=== PATIENT | female | born 1950 | race Caucasian/White ===

== ENCOUNTER 2017-12-26 11:15 | Observation (INO) ==
--- NOTE | 2017-12-26 11:31 | Emergency Department Note ---
Disposition Clinical Impression: Atypical chest pain, Vomiting, Diarrhea, Thyroid nodule, Nausea, vomiting, and diarrhea, Dizziness Disposition: Admitted As Inpatient Condition: Serious Referrals: NONE,PCP [Primary Care Provider] - Zaina Zavala [Family Provider] - Time of Disposition: 14:56 General Adult HPI - General Stated complaint: general Time Seen by Provider: 12/26/17 11:26 Nursing Notes Reviewed: Yes Vital Signs Reviewed: Yes - History of Present Illness HPI Narrative: Patient presents today with CC of: vomitign blood chest pain Patient describes issue began around 2 days ago when she started having vomiting and diarrhea on Monday. She felt a little bit sick on Monday and has recently been exposed to her grandchild who had vomiting and diarrhea. She said she was doing okay but the vomiting has been very violent and when she started vomiting of blood she was concerned. She does not go to the doctor very often. She went to the [facility] urgent [facility] today and was sent here to the emergency department. She said the blood that she has been vomiting has been bright red and she did not vomit any of it today, but today she started having chest pain (pressure) central chest and shortness of breath ~ 10-11 am today. Now gone and pain free.. She also got lightheaded and dizzy. Patient is not on any blood thinners but she does take an aspirin every day and also takes Nexium. She does have a history of atrial fibrillation and several ablations in 2008 - no palpitations or hot/cold intolerance. She has not had any recent surgeries. She has had multiple surgeries on her arm because of carpal tunnel. She said yesterday she ate some toast and agonal today she also ate some toast. She does not have periods anymore she is . 1 miscarriage. She has not had any fever. She said the pain that she had today was in her mid chest became short of breath and was around 10:50 AM.*32 - Related Data Home Medications Medication Instructions Recorded Confirmed Aspirin 325 mg PO DAILY 03/09/17 Nexium 40 mg PO DAILY 03/09/17 Allergies Allergy/AdvReac Type Severity Reaction Status Date / Time codeine Allergy Rash Verified 03/09/17 16:10 hydrocodone Allergy Rash Verified 03/09/17 16:10 morphine Allergy Rash Verified 03/09/17 16:10 IVP Dye Allergy Swelling Uncoded 03/09/17 16:10 of Lip/Tongue/Throat All systems ED: reviewed and negative except as stated. Review of Systems: As Per HPI Past Medical History - Past Medical History Medical history: Reports: other - Social History Smoking Status: Never smoker Smokeless Tobacco Status: No Alcohol use: Reports: none Physical Exam I have reviewed initial and available nurse's notes for the patient. The patient 's medications, allergies, and medical history was reviewed. Family, Social & Surg histories were reviewed and are not relevant except as noted above in the history of present illness, or below in the respective specific section. I have reviewed and agree with all vital signs synchronously available in EMR at the time of this dictation. Times documented are the time of computer entry, are not necessarily the time the event occurred. At least 10 systems reviewed with patient or surrogate during physical exam and are otherwise negative. Physical EXAM: General ~ Constitutional: Conscious & cooperative , generally healthy appearance Head: NCAT Eyes: Sclera white , conjunctiva clear , PERRL, non-icteric ENT : L Tympanic membrane normal color and landmarks R Tympanic membrane normal color and landmarks Canals are clear without significant drainage , no obstruction or vesicles , pinna and tragus non tender Nose with pink nasal mucosa, nares patent, non tender without bleeding Mouth - mucous membrane moist , pink , no lesions , no trismus Neck - no masses , supple , no cervical spinous process tenderness Pharynx - no exudate , no petechia or obvious lesions , no airway obstruction or stridor Hematologic ~ Lymphatic ~ Immunologic: Lymphadenopathy normal , no petechia , Skin color, nails and pulses unremarkable. Heart ~ Chest: Reg rate , nml Rhythm , nl S1/S2 , no MRG no crepitations of the chest wall Lungs: Breath sounds equal , clear to auscultation bilaterally , no wheezing, no rales or rhonchi , no CVA tenderness Gastrointestinal ~ Abd: Soft & tender in her central epigastric and area above her umbilicus. She had no tenderness in the lower abdomen on the left or right lower quadrant. , BS + in 4 quads , No HSM or masses , no peritoneal signs GenitoUrinary: Deferred Musculoskeletal ~ Back ~ Extremities: Warm and w/o clubbing , cyanosis , or edema. No point tenderness , good ROM of major joints Neurologic: Cranial nerves grossly intact, good muscle strength , attention good , cooperative , Alert and oriented x4 Psychiatric: Calm , Insight and mood appropriate , Skin: No rashes , good skin turgor , cap refill 2-3 seconds , warm and dry Course Vital Signs Temperature 97.2 F L 12/26/17 11:24 Pulse Rate 84 12/26/17 11:24 Respiratory Rate 18 12/26/17 11:24 Blood Pressure 120/62 12/26/17 11:24 O2 Sat by Pulse Oximetry 97 12/26/17 11:24 Temperature 97.2 F L 12/26/17 11:24 Pulse Rate 84 12/26/17 11:24 Respiratory Rate 18 12/26/17 11:24 Blood Pressure 120/62 12/26/17 11:24 O2 Sat by Pulse Oximetry 97 12/26/17 11:24 Oxygen Delivery Oxygen Delivery Room Air Medical Decision Making - MDM Narrative Medical decision making narrative: MDM: History and physical exam is consistent with - atypical CP, hematemesis, Pulmonary calcified nodule, thyroid nodule DDx included multiple etiologies for the symptoms such as - atypical CP, ACS, Pneumonia, pneumothorax, Gerd, AAA, PE, hematemesis, Monica-Barrett tear, GERD, gastritis, peptic ulcer disease XRAYS: No acute cardiopulmonary or abdominal pathology XR/XR acute abdominal series IMPRESSION: 1. No acute abdominopelvic abnormality radiographically. Nonobstructive bowel gas pattern. 2. Hyperinflated lungs raising the possibility of emphysema. 3. Left basilar nodular density may represent a calcified granuloma or pulmonary nodule. Please correlate with any outside previous radiographs. RECOMMENDATION: If no outside radiographs are present, dedicated imaging with CT could be obtained to assess for additional nodules. CT : 1. The pulmonary nodule seen radiographically is confirmed as a calcified granuloma. 2. Incidental 1.2 cm right thyroid nodule. Thyroid ultrasound could be considered for further evaluation if clinically warranted. 3. Otherwise unremarkable unenhanced chest CT NRML=0 EKG INTERPRETATION RHYTHM - SR RATE - 75 KS - 165 QRS - 97 QTC - 405 ST-T WAV[place] - NONSPECIFIC ST DEPRESSION V3-V6 THAT IS MINIMAL NO COMPARISION AVAIL INJURY PATTERN - NO ACUTE INJURY PATTERN HEART SCORE : H=1 E=1 A=2 R=1 T=0 HEART Score: H= Suspiciousness: High=2, mod=1, min=0 E= EKG: Significant ST=2, nonspecific repol=1, normal=0 A= Age: >65 =2, 45-65=1, ,45=0 R= Risk Factors: >3 RF or hx of ASVD=2, 1-2 RF=1, 0 RF=0 smoker, Lipids, HTN, diabetes mellitus, + family history, obesity, T= Troponin: >3xnrml=2, 1-3Xnrml=1, <nrml=0 Critical Care: None Condition and evaluation here was discussed in detail. Labwork, and test results were reviewed with the patient. The patient had a small abnormality possible nodule noted on the chest x-ray but the acute abdomen series is otherwise unremarkable. He recommended we compared to previous x-rays however patient does not go to and so she has no other x-rays to compare so I suggested a CT scan for further evaluation and delineation of the nodule. I discussed patient detail with Dr. Saeed who agreed to admit the patient to the hospital for further evaluation and care specifically lab work, EKGs, serial biomarker. She will ultimately need to have further evaluation and follow-up for thyroid nodule as well as possibly gastroenterology evaluation for what she believes may be vomiting blood all others no sign of it this point. Patient had no more episodes of vomiting or diarrhea nor could she give us a stool specimen to check for blood. - Lab Data Result diagrams: 12/26/17 12:26 12/26/17 12:26 Lab Results 12/26/17 12/26/17 12/26/17 Range/Units 12:26 12:26 12:26 WBC 5.7 (4.3-11.1) K/mcL RBC 4.98 H (3.82-4.97) M/mcL Hgb 14.4 (11.5-15.4) g/dL Hct 42.7 (35.3-44.9) % MCV 85.7 (83.0-100.0) fL MCH 28.9 (28.0-33.3) pg MCHC 33.7 (31.6-35.5) g/dL RDW 12.8 (11.5-14.5) % Plt Count 268 (140-400) K/mcL MPV 9.3 L (9.4-12.4) fL Immature Gran % 0.2 (0-4) % Seg Neutrophils % 61.6 % Lymphocytes % 25.6 % Monocytes % 9.6 % Eosinophils % 2.3 % Basophils % 0.7 % Neutrophils # 3.5 (1.6-8.9) K/mcL Lymphocytes # 1.5 (0.6-4.6) K/mcL Monocytes # 0.6 (0.0-1.3) K/mcL Eosinophils # 0.1 (0.0-0.6) K/mcL Basophils # 0.0 (0.0-0.2) K/mcL PT 11.8 (9.4-12.1) Seconds INR 1.0 APTT 31.2 (26.0-36.0) Seconds Sodium (136-145) mEq/L Potassium (3.5-5.1) mEq/L Chloride (98-107) mEq/L Carbon Dioxide (23-29) mEq/L BUN (8-23) mg/dL Creatinine (0.60-1.20) mg/dL Est GFR ( Amer) (> 60) Est GFR (Non-Af Amer) (> 60) BUN/Creatinine Ratio (6-26) Glucose (70-105) mg/dL Calculated Osmolality (280-300) Lactic Acid (0.5-2.2) mmol/L Calcium (8.6-10.3) mg/dL Total Bilirubin (0.3-1.0) mg/dL AST (13-39) Units/L ALT (7-52) Units/L Alkaline Phosphatase (34-104) Units/L Troponin I (< 0.04) ng/mL Serum Total Protein (6.4-8.9) g/dL Albumin (3.5-5.7) g/dL Globulin (2.4-3.5) g/dL Albumin/Globulin Ratio (1.1-2.2) Lipase (11-82) Units/L Urine Color (Yellow) Urine Clarity (Clear) Urine pH (5.0-8.0) pH Units Ur Specific [place] (1.010-1.025) Urine Protein (Neg-Trace) mg/dL Urine Glucose (UA) (Normal) mg/dL Urine Ketones (Negative) mg/dL Urine Blood (Negative) Urine Nitrite (Negative) Urine Bilirubin (Negative) Urine Urobilinogen (Normal) mg/dL Ur Leukocyte Esterase (Negative) Urine Microscopic RBC (0-3) per hpf Urine Microscopic WBC (0-3) per hpf Ur Squamous Epith Cells (None-Few) per lpf Urine Bacteria (None-Few) per hpf Urine Mucus (Few) Ur Culture Indicated? (NO) 12/26/17 12/26/17 12/26/17 Range/Units 12:26 12:26 12:31 WBC (4.3-11.1) K/mcL RBC (3.82-4.97) M/mcL Hgb (11.5-15.4) g/dL Hct (35.3-44.9) % MCV (83.0-100.0) fL MCH (28.0-33.3) pg MCHC (31.6-35.5) g/dL RDW (11.5-14.5) % Plt Count (140-400) K/mcL MPV (9.4-12.4) fL Immature Gran % (0-4) % Seg Neutrophils % % Lymphocytes % % Monocytes % % Eosinophils % % Basophils % % Neutrophils # (1.6-8.9) K/mcL Lymphocytes # (0.6-4.6) K/mcL Monocytes # (0.0-1.3) K/mcL Eosinophils # (0.0-0.6) K/mcL Basophils # (0.0-0.2) K/mcL PT (9.4-12.1) Seconds INR APTT (26.0-36.0) Seconds Sodium 136 (136-145) mEq/L Potassium 3.7 (3.5-5.1) mEq/L Chloride 102 (98-107) mEq/L Carbon Dioxide 27 (23-29) mEq/L BUN 21 (8-23) mg/dL Creatinine 0.89 (0.60-1.20) mg/dL Est GFR ( Amer) > 60 (> 60) Est GFR (Non-Af Amer) > 60 (> 60) BUN/Creatinine Ratio 24 (6-26) Glucose 106 H (70-105) mg/dL Calculated Osmolality 285 (280-300) Lactic Acid 0.6 (0.5-2.2) mmol/L Calcium 9.3 (8.6-10.3) mg/dL Total Bilirubin 0.5 (0.3-1.0) mg/dL AST 16 (13-39) Units/L ALT 13 (7-52) Units/L Alkaline Phosphatase 69 (34-104) Units/L Troponin I < 0.03 (< 0.04) ng/mL Serum Total Protein 7.5 (6.4-8.9) g/dL Albumin 4.3 (3.5-5.7) g/dL Globulin 3.2 (2.4-3.5) g/dL Albumin/Globulin Ratio 1.3 (1.1-2.2) Lipase 20 (11-82) Units/L Urine Color Yellow (Yellow) Urine Clarity Clear (Clear) Urine pH 5.5 (5.0-8.0) pH Units Ur Specific [place] 1.025 (1.010-1.025) Urine Protein Negative (Neg-Trace) mg/dL Urine Glucose (UA) Normal (Normal) mg/dL Urine Ketones Negative (Negative) mg/dL Urine Blood Trace-lysed H (Negative) Urine Nitrite Negative (Negative) Urine Bilirubin Negative (Negative) Urine Urobilinogen Normal (Normal) mg/dL Ur Leukocyte Esterase Negative (Negative) Urine Microscopic RBC 0-3 (0-3) per hpf Urine Microscopic WBC 0-3 (0-3) per hpf Ur Squamous Epith Cells Few (None-Few) per lpf Urine Bacteria Many H (None-Few) per hpf Urine Mucus Moderate H (Few) Ur Culture Indicated? NO (NO)
[2017-12-26] MEDS ORDERED: 0.9 % Sodium Chloride 1,000 ML IVC SCH (12:00)
[2017-12-26 12:37] LABS: Basophils % 0.7 %; Eosinophils # 0.1 K/mcL (0.0-0.6); Eosinophils % 2.3 %; Hematocrit 42.7 % (35.3-44.9); Hemoglobin 14.4 g/dL (11.5-15.4); Immature Granulocytes % 0.2 % (0-4); Lymphocytes # 1.5 K/mcL (0.6-4.6); Lymphocytes % 25.6 %; Mean Corpuscular HGB Conc 33.7 g/dL (31.6-35.5); Mean Corpuscular Hemoglobin 28.9 pg (28.0-33.3); Mean Corpuscular Volume 85.7 fL (83.0-100.0); Mean Platelet Volume 9.3 fL (9.4-12.4); Monocytes # 0.6 K/mcL (0.0-1.3); Monocytes % 9.6 %; Neutrophils # 3.5 K/mcL (1.6-8.9); Platelet Count 268 K/mcL (140-400); Red Blood Count 4.98 M/mcL (3.82-4.97); Red Cell Distribution Width 12.8 % (11.5-14.5); Segmented Neutrophils % 61.6 %
[2017-12-26 12:45] LABS: Prothrombin Time 11.8 Seconds (9.4-12.1)
[2017-12-26 12:51] LABS: Alanine Aminotransferase 13 Units/L (7-52); Albumin 4.3 g/dL (3.5-5.7); Albumin/Globulin Ratio 1.3 (1.1-2.2); Alkaline Phosphatase 69 Units/L (34-104); Aspartate Amino Transferase 16 Units/L (13-39); BUN/Creatinine Ratio 24 (6-26); Bilirubin,Total 0.5 mg/dL (0.3-1.0); Blood Urea Nitrogen 21 mg/dL (8-23); Calcium 9.3 mg/dL (8.6-10.3); Carbon Dioxide 27 mEq/L (23-29); Chloride 102 mEq/L (98-107); Globulin 3.2 g/dL (2.4-3.5); Glucose 106 mg/dL (70-105); Lipase 20 Units/L (11-82); Osmolality,Calculated 285 (280-300); Potassium 3.7 mEq/L (3.5-5.1); Sodium 136 mEq/L (136-145); Total Protein 7.5 g/dL (6.4-8.9); eGFR For Non-African Americans > 60 (> 60)
[2017-12-26 12:51] LABS: Bilirubin,Urine Negative (Negative); Blood,Urine Trace-lysed (Negative); Clarity,Urine Clear (Clear); Color,Urine Yellow (Yellow); Glucose,Urine (UA) Normal (Normal); Ketones,Urine Negative (Negative); Leukocyte Esterase,Urine Negative (Negative); Nitrite,Urine Negative (Negative); PH,Urine 5.5 pH Units (5.0-8.0); Protein,Urine Negative (Neg-Trace); Specific Gravity,Urine 1.025 (1.010-1.025); Urobilinogen,Urine Normal (Normal)
[2017-12-26 12:52] LABS: Troponin I < 0.03 ng/mL (< 0.04)
[2017-12-26 12:56] LABS: Bacteria,Urine Many per hpf (None-Few); Mucus,Urine Moderate (Few); Squamous Epithelial Cell,Urine Few per lpf (None-Few)
[2017-12-26 12:57] LABS: RBC,Urine 0-3 per hpf (0-3); WBC,Urine 0-3 per hpf (0-3)
[2017-12-26] MEDS ORDERED: Naloxone 0.4 MG/ML INJ IVP PRN (15:55)
[2017-12-26] MEDS: 0.9 % Sodium Chloride 1,000 ML IVC SCH (17:56)
[2017-12-27] MEDS: 0.9 % Sodium Chloride 1,000 ML IVC SCH ×2 (00:24→07:00)
[2017-12-27 04:48] LABS: Basophils % 0.8 %; Eosinophils # 0.2 K/mcL (0.0-0.6); Eosinophils % 3.2 %; Immature Granulocytes % 0.2 % (0-4); Lymphocytes # 1.4 K/mcL (0.6-4.6); Lymphocytes % 27.9 %; Mean Corpuscular HGB Conc 33.7 g/dL (31.6-35.5); Mean Corpuscular Hemoglobin 29.1 pg (28.0-33.3); Mean Corpuscular Volume 86.4 fL (83.0-100.0); Mean Platelet Volume 9.4 fL (9.4-12.4); Monocytes # 0.5 K/mcL (0.0-1.3); Monocytes % 10.1 %; Neutrophils # 2.9 K/mcL (1.6-8.9); Platelet Count 218 K/mcL (140-400); Red Cell Distribution Width 12.5 % (11.5-14.5); Segmented Neutrophils % 57.8 %
[2017-12-27 04:49] LABS: Hemoglobin 12.8 g/dL (11.5-15.4)
[2017-12-27 05:02] LABS: BUN/Creatinine Ratio 16 (6-26); Blood Urea Nitrogen 11 mg/dL (8-23); Calcium 8.1 mg/dL (8.6-10.3); Carbon Dioxide 25 mEq/L (23-29); Chloride 110 mEq/L (98-107); Glucose 107 mg/dL (70-105); Osmolality,Calculated 290 (280-300); Potassium 3.6 mEq/L (3.5-5.1); Sodium 140 mEq/L (136-145); eGFR For Non-African Americans > 60 (> 60)
[2017-12-27] MEDS ORDERED: Aspirin 325 MG TABLET PO SCH (09:00)
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
[2017-12-27 12:30] VITALS: BP 101/64
--- NOTE | 2017-12-27 13:31 | Discharge Summary ---
- NOTES TO OUTPATIENT PROVIDER Notes to Outpatient Provider: nodule found on thyroid, right side. was incidental finding during CT of chest. Date of Encounter: 12/27/17 Time of Encounter: 13:29 - Discharge Diagnosis (1) Nausea, vomiting, and diarrhea Priority: Primary Status: Acute Comments: resolved. no episode of vomitting or diarrhea in 2 days. (2) Thyroid nodule Priority: Secondary Status: Acute Comments: consult to PCP. rec ultrasound for follow up (3) Atypical chest pain Priority: Secondary Status: Resolved Hospital course: Ms. Elliott is a 67 year old female states symptoms have resolved. Denies nausea, vomiting or diarrhea. Denies fever or chills. Denies chest pain or shortness of breath. States she is ready to go home. Has eaten breakfast and lunch without any difficulty. PCP and cardiology consult to. To follow up with right thyroid nodule. Discharge discussed with: patient, family, nurse - Time Spent with Patient Total time spent providing and/or coordinating discharge services: Less than 30 minutes - Discharge Medications Home Medications: Aspirin 325 mg PO DAILY 03/09/17 [History] Nexium 40 mg PO DAILY 03/09/17 [History] Allergies/Adverse Reactions: 3 Allergy/AdvReac Type Severity Reaction Status Date / Time codeine Allergy Rash Verified 03/09/17 16:10 hydrocodone Allergy Rash Verified 03/09/17 16:10 morphine Allergy Rash Verified 03/09/17 16:10 IVP Dye Allergy Swelling Uncoded 03/09/17 16:10 of Lip/Tongue/Throat Date of admission: 12/26/17 15:15 Primary care physician: PCP NONE Consults: 12/26/17 16:30 Consult to Nutrition [CONS] Routine Comment: Consulting Provider: NUTRITION Reason for Dietary Consult: MST Score Discharging clinician: Aries Saeed Anticipated date of discharge: 12/27/17 - Constitutional Vitals: Temp Pulse Resp BP Pulse Ox 98.6 F 79 19 101/64 95 12/27/17 12:28 12/27/17 12:28 12/27/17 07:40 12/27/17 12:28 12/27/17 12:28 General appearance: Present: cooperative, A&O X 3, pleasant, no acute distress, answers questions appropriately - Patient Status Disposition: Home, Self-Care Condition: Good Overall status at discharge: patient is back to baseline - Discharge Instructions Follow Up With: NONE,PCP [Primary Care Provider] - Zaina Zavala [Family Provider] - Forms: ED Satisfaction Letter, Work/School Release - Diet and Activity Activity: increase activity as tolerated Diet: advance to your usual diet - VTE Documentation of Mechanical Device: Intermittent pneumatic compression device
--- NOTE | 2017-12-27 16:45 | Electrocardiograph Report ---
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
--- NOTE | 2017-12-27 17:15 | Electrocardiograph Report ---
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
== END 2017-12-27 15:00 | disposition home or self-care (01) ==
LOC: EMEROOGRE 11:15 → INPGRE 11:15